=== PATIENT | male | born 2000 ===

== ENCOUNTER 2023-06-07 08:06 | Outpatient (REF) | payer MEDICAID, SELFPAY | END 2023-06-07 08:07 | disposition home or self-care (01) | LOC: HO.SH 08:06 | PROVIDERS: Visit Provider Student in an Organized Health Care Education/Training Program | DX: Z01.118 Encounter for examination of ears and hearing with other abnormal findings (principal); H90.3 Sensorineural hearing loss, bilateral | CPT/HCPCS: 92557; 92567 ==